=== PATIENT | male | born 1975 | race Two or more races ===

== ENCOUNTER 2025-08-26 16:15 | Emergency (ER) | payer MEDICAID, SELFPAY ==
[2025-08-26 16:46] VITALS: BP 153/91; PULSE 82; RESP 18; TEMP 36.6; O2SAT 95; BMI 31.3
--- NOTE | 2025-08-26 17:00 | PD.EDRME ---
Rapid Medical Screening Exam RME Arrival date/time: 08/26/25 16:15 50-year-old male with a history of colitis and gastritis reports with complaints of diffuse abdominal pain nausea and vomiting Chief Complaint: Abdominal Pain Time Seen by Provider: 08/26/25 16:24 Vital signs: Vital Signs Temperature 98 F 08/26/25 16:46 Pulse Rate 82 08/26/25 16:46 Respiratory Rate 18 08/26/25 16:46 Blood Pressure 153/91 H 08/26/25 16:46 Pulse Oximetry (%) 95 08/26/25 16:46 Oxygen Delivery Method Room Air 08/26/25 16:46 Exam: - Clinical Impression: -
[2025-08-26 17:40] LABS: Basophils # (Auto) 0.1 Thou/mm3 (0.0-0.2); Basophils % (Auto) 1 % (0-2.5); Eosinophils # (Auto) 0.2 Thou/mm3 (0.0-0.5); Eosinophils % (Auto) 3 % (0-10); Hematocrit 44.2 % (41.0-53.0); Hemoglobin 15.4 g/dL (13.5-16.0); Immature Granulocytes Auto 0.02 Thou/mm3 (0.00-0.00); Lymphocytes # (Auto) 2.3 Thou/mm3 (1.0-4.8); Lymphocytes % (Auto) 31 % (10-50); Mean Corpuscular HGB Conc 34.8 g/dl (31.0-37.0); Mean Corpuscular Hemoglobin 32.3 pg (25.0-35.0); Mean Corpuscular Volume 93 fL (80-100); Monocytes # (Auto) 0.5 Thou/mm3 (0.0-0.8); Monocytes % (Auto) 6 % (0-12); Neutrophils # (Auto) 4.2 Thou/mm3 (1.8-7.7); Neutrophils % (Auto) 58 % (37-80); Nucleated Red Blood Cell # 0.00 Thou/mm3 (0.00-0.00); Nucleated Red Blood Cell % 0 /100 WBC (0); Platelet Count 255 Thou/mm3 (140-440); RDW Standard Deviation 42.5 fL (35.1-43.9); Red Blood Count 4.77 Miln/mm3 (4.50-5.90); White Blood Count 7.2 Thou/mm3 (3.8-10.6)
[2025-08-26 17:49] LABS: Collection Type, Urine Clean Catch; Squamous Epithelial Cell,Urine 0 /hpf (0-5)
[2025-08-26 17:58] LABS: Alanine Aminotransferase 25 U/L (10-49); Albumin, Serum 4.2 gm/dL (3.5-5.0); Albumin/Globulin Ratio 1.4 (1.2-2.2); Alkaline Phosphatase 51 U/L (46-116); Anion Gap 11 (7-16); Aspartate Amino Transferase 24 U/L (0-34); BUN/Creatinine Ratio 11 Ratio (12-20); Bilirubin,Total 0.3 mg/dL (0.3-1.2); Blood Urea Nitrogen 9 mg/dL (9-23); Calcium 8.9 mg/dL (8.3-10.6); Calcium (Corrected) 8.9 mg/dL (8.5-10.1); Carbon Dioxide 24.1 mMol/L (20.0-31.0); Chloride 108 mMol/L (98-107); Creatinine (Component) 0.8 mg/dL (0.6-1.3); Estimated Creatinine Clearance 114.8 mL/min (>60); Globulin 2.9 gm/dL (2.3-3.5); Glucose 104 mg/dL (74-106); Lipase 43 U/L (12-53); Osmolality,Calculated 283 (275-295); Potassium 4.1 mMol/L (3.4-5.1); Sodium 143 mMol/L (136-145); Total Protein 7.1 gm/dL (5.7-8.2); eGFR > 60 See Note
[2025-08-26 18:00] LABS: Bilirubin,Urine Negative (Negative); Blood,Urine Negative (Negative); Clarity,Urine Clear (Clear/Hazy); Color,Urine Colorless (Lt Yel-Yel); Culture Indicated,Urine Not Indicated; Glucose, Urine Negative (Negative); Ketones,Urine Negative (Negative); Leukocyte Esterase,Urine Negative (Negative); Nitrite,Urine Negative (Negative); PH,Urine 6.0 (5.0-7.0); Protein,Urine Negative (Neg - Trace); RBC,Urine < 1 /hpf (0-3); Specific Gravity,Urine 1.010 (1.001-1.035); Urobilinogen,Urine Negative mg/dL (0.0-1.0); WBC,Urine < 1 /hpf (0-5)
--- NOTE | 2025-08-26 18:19 | XR_ITS ---
Examination: CT abdomen and pelvis without contrast. Coronal 3-D reconstructions. Sagittal 2-D reconstructions. Date and time of exam: August 26, 2025, 1830 hours COMPARISON: November 23, 2022 INDICATIONS: Generalized abdominal pain and constipation beginning 1 week ago CTDI: vol (mGy): 7.92 DLP: (mGycm): 473 Technique: Axial images of the abdomen have been obtained, 3 mm slice thickness Intravenous contrast material has not been administered. Low dose protocols were performed. One or more of the following dose reduction techniques were used; automated exposure control, adjustment of the mA and/or KV according to patient size, use of iterative reconstruction technique. Findings: No focal liver or splenic lesions Absent gallbladder No extrahepatic biliary tract dilatation No pancreatic or adrenal mass No renal or ureteral calculi, no hydronephrosis Aorta normal size Normal appendix No bowel obstruction or diverticulitis There is no significant stool in the rectum Normal seminal vesicles Transverse prostate dimension 5.9 cm IMPRESSION: No renal or ureteral calculi, no hydronephrosis Normal appendix There is a normal stool load in the colon, no obstruction, no diverticulitis, negative for proctitis Prostatomegaly
--- NOTE | 2025-08-26 19:29 | PD.EDABDPN ---
ED Abdominal Pain RME/HPI General Chief Complaint: Abdominal Pain Stated complaint: UPPER ABD PAIN DOWN THROUGH RECTUM, 04/14 Time seen by provider: 08/26/25 16:24 Arrival date/time: 08/26/25 16:15 RME / HPI RME / HPI narrative: 08/26/25 16:15 50-year-old male with a history of colitis and gastritis reports with complaints of diffuse abdominal pain nausea and vomiting See [facility] for Dr. Arce's HPI documentation. Related Data Home Medications ?Medication ?Instructions ?Recorded ?Confirmed pantoprazole 20 mg tablet,delayed 20 mg PO QDAY 01/02/24 01/02/24 release Previous Rx's ?Medication ?Instructions ?Recorded famotidine 40 mg tablet 40 mg PO .bedtime #30 tabs 08/26/25 omeprazole 40 mg capsule,delayed 40 mg PO QDAY #30 caps 08/26/25 release ondansetron 4 mg disintegrating 4 mg PO TID PRN nausea and 08/26/25 tablet vomiting 30 days #10 tabs Allergies Allergy/AdvReac Type Severity Reaction Status Date / Time No Known Allergies Allergy Verified 08/26/25 16:21 Review of Systems Review of Systems Systems Reviewed: All systems reviewed, normal except as documented Past Medical History Past Medical History CARDIAC: Negative Cardiac Disorders or Congestive Heart Failure RESPIRATORY: Negative Chronic Obstructive Pulmonary Disease (COPD) or Asthma GASTROINTESTINAL: Positive Gastrointestinal Disorders and Gastroesophageal Reflux Disease GENITOURINARY: Negative Renal Disease ENDOCRINE: Negative Diabetes Mellitus Type 1 or Diabetes Mellitus Type 2 HEMATOLOGIC: Negative Sickle Cell Disease Social History SMOKING STATUS: Never smoker ED Exam Narrative Physical exam: See [facility] for Dr. Arce's physical exam documentation. Course Quality Measures none Orders Category Date Time Status CT Screening NOW Care 08/26/25 16:[address] abdomen pelvis wo con Stat Exams 08/26/25 18:19 Completed CBC Stat Lab 08/26/25 17:19 Completed CMP [Comprehensive Metabolic Panel] Stat Lab 08/26/25 17:19 Completed Lipase Stat Lab 08/26/25 17:19 Completed UA, C/S IF [Urinalysis, C/S if Indicated] Stat Lab 08/26/25 17:44 Completed Vital Signs Vital signs: Vital Signs Temperature 98 F 08/26/25 16:46 Pulse Rate 82 08/26/25 16:46 Respiratory Rate 18 08/26/25 16:46 Blood Pressure 153/91 H 08/26/25 16:46 Pulse Oximetry (%) 95 08/26/25 16:46 Oxygen Delivery Method Room Air 08/26/25 16:46 Abdominal Pain MDM MDM Narrative MDM Narrative:: This section includes all my notes and documentations, including HPI, PE, and ED course. Beni Arce MD HPI: 50-year-old male here with upper abdominal pain for years. No nausea, vomiting, diarrhea, fever, chills, or decreased appetite. No other complaints reported. ROS: All negative except as documented in HPI. Physical Exam: General: Alert and oriented. No acute distress when remaining still. Eyes: Conjunctivae and lids clear. ENT: No nasal congestion. Neck: Supple. Heart: RRR. Lungs: No respiratory distress. Good air movement. No rhonchi, wheezing, rales. Abdomen: Soft with equivocal epigastric tenderness. Normal bowel sounds. No distension. No rebound or guarding. Back: No CVA tenderness. Skin: Warm and dry. Neuro: Alert and oriented X 3. I reviewed all diagnostic test results. My review of the CT abdomen pelvis report is unremarkable. Blood tests and urine tests are unremarkable. At this point, diagnoses include: Stomach ulcer Prescribed famotidine and omeprazole and recommended more outpatient workup. Based on my best medical judgment, made decision no further evaluation or treatment indicated at this time. Patient understands and agrees to the discharge instructions customized and printed, see below. Discharge instructions from Dr. Arce: ?After evaluation, your symptoms are due to stomach ulcer (see attached handout). ?To help heal the ulcer, take Omeprazole 40 mg every morning and Famotidine 40 mg at bedtime for a month. ?Zofran for nausea/vomiting. For good hydration, increase oral fluid and maintain clear urine. If dark or yellow, increase oral fluid. ?Avoid food and beverages that can trigger and worsen ulcers. See attached handout. ?See a private doctor on 08/24/2025 for recheck. To make sure there is no serious intra-abdominal condition, ask for help with more investigation not available here in the ER. Such as EGD or scoping the stomach, colonoscopy or scoping the colon, and referral to see passenger service agent. ?Seek immediate medical care with worsening or with any concerns. Beni Arce MD Patient data External records reviewed:: [facility] previous records (Per chart review, patient was seen here on 11/23/22 for abdominal pain.) Clinical information provided by:: patient Social determinants that could affect healthcare access:: none Patient has the following chronic illnesses:: none How is presenting disease/condition affected by chronic disease/condition?: no chronic disease Evaluation data The following diagnostics were reviewed and interpreted by me:: lab results and radiology exam(s) Lab and/or radiology exams considered but not ordered:: none Interpretation Summary: I reviewed all diagnostic test results. My review of the CT abdomen pelvis report is unremarkable. Blood tests and urine tests are unremarkable. Medications / Prescriptions Medications or Prescriptions considered but not ordered:: none Medication administrations:: none Consultations Consultation(s) initiated? (list below): No Diagnosis Differential diagnosis abdominal pain: acute appendicitis, calculus of kidney, constipation, diverticulitis, gastroenteritis and other (Gastritis, PUD, GERD) Most likely diagnosis given after review of the tests above:: Stomach ulcer Admission Indicated Admission indicated?: not indicated Explain why admission is indicated or not indicated:: With no condition needing emergent intervention, there was no indication for admission. Admission Request Was there a request for admission?: No Disposition Plan Disposition Plan: Discharge Discharge Attestation Discharge Attestation: The patient and all family members were given an opportunity to ask questions and understood the discharge instructions. Discharge instructions specifically effects, indications for sooner follow up or return to the emergency department, and the expected course of current diagnosis. Patient condition: Stable Discharge Plan Plan Patient Disposition: HOME (Self Care) Prescriptions/Referrals Prescriptions/Med Rec: New famotidine 40 mg tablet 40 mg PO .bedtime Qty: 30 0RF omeprazole 40 mg capsule,delayed release(DR/EC) 40 mg PO QDAY Qty: 30 0RF ondansetron 4 mg tablet,disintegrating 4 mg PO TID PRN (Reason: nausea and vomiting) 30 Days Qty: 10 0RF No Action pantoprazole 20 mg tablet,delayed release (DR/EC) 20 mg PO QDAY Referrals: Ericka Gallegos FNP [Primary Care Provider] - In 1 week Problem List Clinical Impression: Stomach ulcer Patient/Caregiver Discharge Instructions Discharge Activity: activity as tolerated Education Materials: ED PEPTIC ULCER vs GASTRITIS Additional Instructions: Instrucciones de isabella del Dr. Arce: ?Tras la evaluaci?n, wayne s?ntomas se deben a natalie ?lcera estomacal (consulte el folleto adjunto). ?Para ayudar a curar la ?lcera, tome Omeprazol 40 mg todas las ma?anas y Famotidina 40 mg al acostarse gaetano un mes. ?[place] Zofran para las n?useas y los v?mitos. Para natalie buena hidrataci?n, aumente la ingesta de l?quidos y mantenga la orina bette. Si la orina es oscura o amarilla, aumente la ingesta de l?quidos. ?Evite los alimentos y bebidas que puedan desencadenar o empeorar las ?lceras. Consulte el folleto adjunto. ?Consulte con un m?dico particular el 24/08/2025 para natalie revisi?n. Para descartar cualquier afecci?n intraabdominal grave, solicite que le realicen m?s pruebas que no est?n disponibles aqu? en la jose de emergencias. Por ejemplo, natalie endoscopia digestiva isabella (EGD) o natalie colonoscopia, y natalie derivaci?n a un gastroenter?logo. ?Busque atenci?n m?dica de inmediato si los s?ntomas empeoran o si tiene alguna inquietud. Discharge instructions from Dr. Arce: ?After evaluation, your symptoms are due to stomach ulcer (see attached handout).? ?To help heal the ulcer, take Omeprazole 40 mg every morning and Famotidine 40 mg at bedtime for a month. ?Zofran for nausea/vomiting.? For good hydration, increase oral fluid and maintain clear urine. If dark or yellow, increase oral fluid. ?Avoid food and beverages that can trigger and worsen ulcers.? See attached handout. ?See a private doctor on 08/24/2025 for recheck. To make sure there is no serious intra-abdominal condition, ask for help with more investigation not available here in the ER.? Such as EGD or scoping the stomach, colonoscopy or scoping the colon, and referral to see passenger service agent. ?Seek immediate medical care with worsening or with any concerns. Print Language: Lithuanian Stand Alone Forms: Dina Award Info., Patient Portal Info Letter
[2025-08-26 19:42] VITALS: BP 132/86; PULSE 70; RESP 18; TEMP 36.8; O2SAT 97
== END 2025-08-26 19:49 | disposition home or self-care (01) ==
PROVIDERS: Physician Assistant; Emergency Provider Emergency Medicine; PCP Nurse Practitioner Family
DX: K25.9 Gastric ulcer, unspecified as acute or chronic, without hemorrhage or perforation (principal)
CPT/HCPCS: 36415; 74176; 80053; 81001; 83690; 85025; 99283